=== PATIENT | male | born 1960 | race Caucasian/White ===

== ENCOUNTER 2018-12-05 12:14 | Day surgery (SDC) | payer OTHER ==
[~2018-12-05] VITALS: Ht 175.3 cm; Wt 75.0 kg
[2018-12-05 12:33] VITALS: BP 127/91
[2018-12-05] MEDS ORDERED: VITA1CAP PO (12:46)
[2018-12-05] MEDS ORDERED: METO25TA91 PO (12:46)
[2018-12-05] MEDS ORDERED: RIVA20TA PO (12:46)
[2018-12-05] MEDS ORDERED: PROPOFOL 10 MG/ML, 20ML ONE (13:56)
== END 2018-12-05 15:18 | disposition home or self-care (01) ==
LOC: CACL 12:14
PROVIDERS: ATTEND Internal Medicine Cardiovascular Disease
DX: I48.91 Unspecified atrial fibrillation (principal); I10 Essential (primary) hypertension; E11.9 Type 2 diabetes mellitus without complications; Z79.01 Long term (current) use of anticoagulants; Z79.899 Other long term (current) drug therapy; Z88.8 Allergy status to other drugs, medicaments and biological substances
CPT/HCPCS: 92960

== ENCOUNTER 2019-01-29 08:33 | Outpatient (CLI) | payer OTHER ==
[~2019-01-29 08:33] MED LIST changes: -CHOL3000 PO; -OMNIPAQUE 350 MG/ML, 150 ML BOTTLE ONE
[2019-01-29] MEDS ORDERED: CHOL3000 PO (09:19)
[2019-01-29 09:26] LABS: BASOPHILS # (AUTO) 0.06 x10^3/uL (0-0.1); BASOPHILS % (AUTO) 1 % (0-1); EOSINOPHILS # (AUTO) 0.08 x10^3/uL (0-0.4); EOSINOPHILS % (AUTO) 1 % (1-7); LYMPHOCYTES # (AUTO) 1.47 x10^3/uL (1-3.4); LYMPHOCYTES % (AUTO) 17 % (22-44); MD NO; MEAN CORPUSCULAR HEMOGLOBIN 33.8 pg (27.5-34.5); MEAN CORPUSCULAR VOLUME 102.5 fL (81-97); MEAN PLATELET VOLUME 8.3 fL (7.4-10.4); MONOCYTES % (AUTO) 8 % (2-9); NEUTROPHILS # (AUTO) 6.11 x10^3/uL (1.8-6.8); NEUTROPHILS % (AUTO) 73 % (42-75); PLATELET COUNT 210 x10^3/uL (130-400); RED BLOOD COUNT 4.86 x10^6/uL (4.38-5.82); RED CELL DISTRIBUTION WIDTH 14.4 % (9.4-14.8)
[2019-01-29 09:36] LABS: ANION GAP 5 mmol/L (5-15); CALCIUM 9.4 mg/dL (8.5-10.1); CHLORIDE 108 mmol/L (98-107); CREATININE 0.96 mg/dL (0.7-1.3)
== END 2019-01-29 23:59 | disposition home or self-care (01) ==
LOC: STAR 08:33
PROVIDERS: ATTEND Internal Medicine Cardiovascular Disease
DX: Z01.818 Encounter for other preprocedural examination (principal); I48.91 Unspecified atrial fibrillation
CPT/HCPCS: 36415; 80048; 85025

== ENCOUNTER → 2019-01-29 | Outpatient (CLI) | payer OTHER ==
[~2019-01-29] MED LIST: CHOL3000 PO; METO25TA91 PO; OMNIPAQUE 350 MG/ML, 150 ML BOTTLE ONE; RIVA20TA PO; VITA1CAP PO
== END | disposition home or self-care (01) ==
LOC: CFH 11:32
PROVIDERS: ATTEND Internal Medicine Cardiovascular Disease
DX: I48.91 Unspecified atrial fibrillation (principal); I49.9 Cardiac arrhythmia, unspecified; Z82.41 Family history of sudden cardiac death
CPT/HCPCS: 71046; 75572; Q9967

== ENCOUNTER 2019-02-06 06:39 | Observation (INO) | payer OTHER ==
[2019-01-29 09:08] VITALS: BP 140/103
[~2019-02-06] VITALS: Ht 175.3 cm; Wt 84.9 kg
[~2019-02-06 06:39] MED LIST changes: +CHOL3000 PO
[2019-02-06] MEDS ORDERED: SODIUM CHLORIDE 0.9% 1,000 ML IV SCH (06:56)
[2019-02-06] MEDS ORDERED: SODIUM CHLORIDE 0.9% 1,000 ML IV ONE (07:00)
[2019-02-06] MEDS ORDERED: LIDOCAINE 1%, 20ML ONE (07:12)
[2019-02-06] MEDS ORDERED: PROPOFOL 50 ML ONE (07:56)
[2019-02-06] MEDS ORDERED: FENTANYL PF 250 MCG/5ML ONE (07:56)
[2019-02-06] MEDS ORDERED: MIDAZOLAM 1 MG/ML, 2ML ONE (07:56)
[2019-02-06] MEDS ORDERED: ONDANSETRON 2MG/ML, 2ML ONE (08:09)
[2019-02-06] MEDS ORDERED: SUCCINYLCHOLINE 20 MG/ML, 10ML ONE (08:09)
[2019-02-06] MEDS ORDERED: DEXAMETHASONE 4 MG/ML, 1ML ONE (08:09)
[2019-02-06] MEDS ORDERED: ROCURONIUM 10 MG/ML,10ML ONE (08:09)
[2019-02-06] MEDS ORDERED: DIAZEPAM 5 MG/ML, 2ML IVPush PRN (10:30)
[2019-02-06] MEDS ORDERED: ACETAMINOPHEN 325 MG TABLET PO PRN (10:30)
[2019-02-06] MEDS ORDERED: ONDANSETRON 2MG/ML, 2ML IV PRN (10:30)
[2019-02-06] MEDS ORDERED: MIDAZOLAM 1 MG/ML, 2ML IV PRN (10:30)
[2019-02-06] MEDS ORDERED: hydrALAzine 20 MG/ML, 1ML IV PRN (10:30)
[2019-02-06] MEDS ORDERED: PROMETHAZINE 25 MG/ML, 1ML IV PRN (10:30)
[2019-02-06] MEDS ORDERED: ONDANSETRON ODT 8 MG PO PRN (10:30)
[2019-02-06] MEDS ORDERED: METOPROLOL 1 MG/ML, 5ML IV PRN (10:30)
[2019-02-06] MEDS ORDERED: EPHEDRINE 50 MG/ML, 1ML IVPush PRN (10:30)
[2019-02-06] MEDS ORDERED: OXYcodone 5 MG/5 ML ORAL.SOL UDC PO PRN (10:30)
[2019-02-06] MEDS ORDERED: EPHEDRINE 50 MG/ML, 1ML IM PRN (10:30)
[2019-02-06] MEDS ORDERED: DIPHENHYDRAMINE 50 MG/ML, 1ML IVPush PRN (10:30)
[2019-02-06] MEDS ORDERED: MEPERIDINE/PF 25MG/ML,1ML IVPush PRN (10:30)
[2019-02-06] MEDS ORDERED: FENTANYL PF 100 MCG/2ML IV PRN (10:30)
[2019-02-06] MEDS ORDERED: MORPHINE SULFATE 4 MG/ML, 1ML IVPush PRN (10:30)
[2019-02-06 13:38] VITALS: BP 99/66
[2019-02-06] MEDS: SOTALOL 80MG TABLET PO SCH (18:41)
[2019-02-06 19:23] VITALS: BP 106/71
[2019-02-06] MEDS ORDERED: RIVAROXABAN 20 MG TABLET PO SCH (21:00)
[2019-02-06 21:11] VITALS: BP 70/61
[2019-02-06 21:12] VITALS: BP 92/61
[2019-02-06 21:16] VITALS: BP 96/61
[2019-02-07] VITALS (8 sets, daily range): BP systolic 92–120; BP diastolic 60–78
[2019-02-07] MEDS ORDERED: RIVAROXABAN 20 MG TABLET PO SCH (07:00)
[2019-02-07] MEDS: CHOLECALCIFEROL 1,000 UNIT TABLET PO SCH (07:56)
[2019-02-07] MEDS: SOTALOL 80MG TABLET PO SCH ×2 (07:56→17:20)
[2019-02-07] MEDS: KETOROLAC 30 MG/1 ML IVPush PRN ×4 (08:16→21:42)
[2019-02-07] MEDS ORDERED: SODIUM CHLORIDE 0.9%, 500ML IVBOLUS ONE (08:30)
[2019-02-07] MEDS: SODIUM CHLORIDE 0.9% 1,000 ML IV SCH ×2 (11:00→21:05)
[2019-02-07] MEDS: ACETAMINOPHEN 325 MG TABLET PO PRN ×2 (12:53→18:39)
[2019-02-07] MEDS: RIVAROXABAN 20 MG TABLET PO SCH (17:20)
[2019-02-08 00:37] VITALS: BP 121/83
[2019-02-08] MEDS: KETOROLAC 30 MG/1 ML IVPush PRN (04:04)
[2019-02-08] MEDS: SODIUM CHLORIDE 0.9% 1,000 ML IV SCH (04:04)
[2019-02-08 05:52] VITALS: BP 137/93
[2019-02-08] MEDS: SOTALOL 80MG TABLET PO SCH ×2 (05:55→17:59)
[2019-02-08 06:52] VITALS: BP 135/86
[2019-02-08] MEDS ORDERED: COLC0.6C3 PO ×2 (08:33)
[2019-02-08] MEDS ORDERED: ACET325T26 PO (08:33)
[2019-02-08] MEDS ORDERED: SOTA80TA18 PO (08:33)
[2019-02-08] MEDS: COLCHICINE 0.6 MG CAPSULE PO SCH ×2 (09:23→20:43)
[2019-02-08] MEDS: CHOLECALCIFEROL 1,000 UNIT TABLET PO SCH (09:23)
[2019-02-08 12:45] VITALS: BP 142/98
[2019-02-08] MEDS: SIMETHICONE 80 MG CHEW TAB PO PRN ×3 (13:40→20:51)
[2019-02-08] MEDS: RIVAROXABAN 20 MG TABLET PO SCH (16:44)
[2019-02-08] MEDS: ACETAMINOPHEN 325 MG TABLET PO PRN (17:59)
[2019-02-08 18:02] VITALS: BP 146/101
[2019-02-08 19:43] VITALS: BP 122/82
[2019-02-09 02:53] VITALS: BP 132/88
[2019-02-09] MEDS: SOTALOL 80MG TABLET PO SCH (05:43)
[2019-02-09 07:01] VITALS: BP 136/89
[2019-02-09] MEDS: COLCHICINE 0.6 MG CAPSULE PO SCH (08:44)
[2019-02-09] MEDS: CHOLECALCIFEROL 1,000 UNIT TABLET PO SCH (08:44)
[2019-02-09 08:53] LABS: ALANINE AMINOTRANSFERASE 322 U/L (12-78); ANION GAP 6 mmol/L (5-15); BASOPHILS # (AUTO) 0.02 x10^3/uL (0-0.1); BASOPHILS % (AUTO) 0 % (0-1); CALCIUM 8.4 mg/dL (8.5-10.1); CHLORIDE 106 mmol/L (98-107); CREATININE 0.99 mg/dL (0.7-1.3); EOSINOPHILS # (AUTO) 0.02 x10^3/uL (0-0.4); EOSINOPHILS % (AUTO) 0 % (1-7); LYMPHOCYTES # (AUTO) 0.62 x10^3/uL (1-3.4); LYMPHOCYTES % (AUTO) 6 % (22-44); MD NO; MEAN CORPUSCULAR HGB CONC 34.3 g/dL (33.2-36.2); MEAN CORPUSCULAR VOLUME 99.3 fL (81-97); MEAN PLATELET VOLUME 9.1 fL (7.4-10.4); MONOCYTES # (AUTO) 0.95 x10^3/uL (0.2-0.8); MONOCYTES % (AUTO) 9 % (2-9); NEUTROPHILS # (AUTO) 9.17 x10^3/uL (1.8-6.8); NEUTROPHILS % (AUTO) 85 % (42-75); PLATELET COUNT 152 x10^3/uL (130-400); RED BLOOD COUNT 3.73 x10^6/uL (4.38-5.82); RED CELL DISTRIBUTION WIDTH 13.6 % (9.4-14.8)
[2019-02-09 08:55] LABS: ALKALINE PHOSPHATASE 129 U/L (45-117); BILIRUBIN,TOTAL 1.7 mg/dL (0.2-1.0); TOTAL PROTEIN 6.6 g/dL (6.4-8.2)
[2019-02-09 12:10] VITALS: BP 137/88
[2019-02-09] MEDS: SIMETHICONE 80 MG CHEW TAB PO PRN (13:02)
== END 2019-02-09 14:07 | disposition home or self-care (01) ==
LOC: CACL 06:39 → ORIP 12:11 → 5SO 13:39 → DCLOUNGE 02-09 13:49
PROVIDERS: ADMIT Internal Medicine Cardiovascular Disease; ATTEND Internal Medicine Cardiovascular Disease
DX: I48.91 Unspecified atrial fibrillation (principal); I10 Essential (primary) hypertension; D68.69 Other thrombophilia; Z79.899 Other long term (current) drug therapy; Z79.01 Long term (current) use of anticoagulants
CPT/HCPCS: 36415; 76705; 80053; 85025; 85347; 93005; 93308; 93312; 93321; 93325; 93613; 93656; 93657; 93662; 96374; 96376; C1730; C1732; C1759; C1766; C1893; C1894; G0378; J0330; J1100; J1885; J2250; J2405; J2704; J3010; J3490; J7030; J7040

== ENCOUNTER 2019-02-13 10:46 | Emergency (ER) | payer OTHER ==
[~2019-02-13] VITALS: Ht 175.3 cm; Wt 81.7 kg
[~2019-02-13 10:46] MED LIST changes: +ACET325T26 PO; +COLC0.6C3 PO; +SOTA80TA18 PO
[2019-02-13] MEDS ORDERED: SODIUM CHLORIDE FLUSH 10ML SYR IVF ONE (11:30)
[2019-02-13 11:58] LABS: BASOPHILS # (AUTO) 0.04 x10^3/uL (0-0.1); BASOPHILS % (AUTO) 1 % (0-1); EOSINOPHILS # (AUTO) 0.08 x10^3/uL (0-0.4); EOSINOPHILS % (AUTO) 1 % (1-7); LYMPHOCYTES # (AUTO) 1.17 x10^3/uL (1-3.4); LYMPHOCYTES % (AUTO) 13 % (22-44); MD NO; MEAN CORPUSCULAR HGB CONC 34.3 g/dL (33.2-36.2); MEAN PLATELET VOLUME 8.1 fL (7.4-10.4); MONOCYTES # (AUTO) 0.78 x10^3/uL (0.2-0.8); MONOCYTES % (AUTO) 8 % (2-9); NEUTROPHILS # (AUTO) 7.29 x10^3/uL (1.8-6.8); NEUTROPHILS % (AUTO) 78 % (42-75); PLATELET COUNT 270 x10^3/uL (130-400); RED BLOOD COUNT 3.76 x10^6/uL (4.38-5.82); RED CELL DISTRIBUTION WIDTH 13.8 % (9.4-14.8)
[2019-02-13 12:02] LABS: ALANINE AMINOTRANSFERASE 171 U/L (12-78); ALBUMIN 3.1 g/dL (3.4-5.0); ANION GAP 9 mmol/L (5-15); CALCIUM 8.6 mg/dL (8.5-10.1); CHLORIDE 105 mmol/L (98-107); CREATININE 0.93 mg/dL (0.7-1.3)
[2019-02-13 12:07] LABS: ALKALINE PHOSPHATASE 264 U/L (45-117); BILIRUBIN,TOTAL 1.7 mg/dL (0.2-1.0); TOTAL PROTEIN 6.7 g/dL (6.4-8.2)
[2019-02-13 12:25] LABS: TROPONIN I 0.137 ng/mL (0.000-0.045)
--- NOTE | 2019-02-13 12:28 | NUR ---
NOTIFIED OF CRITICAL TROPONIN 0.137
--- NOTE | 2019-02-13 13:09 | NUR ---
PT TO CT
--- NOTE | 2019-02-13 14:10 | NUR ---
PT RESTING IN [facility], AWAITNG RECHECK BY .
[2019-02-13] MEDS ORDERED: OMNIPAQUE 350 MG/ML, 100ML BOTTLE ONE (14:11)
[2019-02-13] MEDS ORDERED: FUROSEMIDE 20 MG/2 ML IV ONE (14:30)
[2019-02-13] MEDS ORDERED: FUROSEMIDE 20 MG/2 ML ONE (14:38)
--- NOTE | 2019-02-13 15:15 | NUR ---
PT TO BE GIVEN LASIX DOSE THEN DC.
[2019-02-13 15:26] VITALS: BP 157/97
--- NOTE | 2019-02-13 15:45 | NUR ---
PT VOIDED SEVERAL TIMES POST LASIX DOSE, NO DROP IN BP OR C/O DIZZINESS. PT GIVEN URINAL AND DISCHARGED WITH
== END 2019-02-13 15:47 | disposition home or self-care (01) ==
LOC: ED 11:50
DX: I50.31 Acute diastolic (congestive) heart failure (principal); I50.1 Left ventricular failure, unspecified; I50.810 Right heart failure, unspecified; R06.00 Dyspnea, unspecified; R94.5 Abnormal results of liver function studies; R79.9 Abnormal finding of blood chemistry, unspecified
CPT/HCPCS: 36415; 71275; 74177; 80053; 83735; 83880; 84484; 85025; 93005; 96374; 99284; J1940; Q9967

== ENCOUNTER 2019-02-20 06:04 | Day surgery (SDC) | payer OTHER ==
[~2019-02-20] VITALS: Ht 175.3 cm; Wt 75.0 kg
[2019-02-20] MEDS ORDERED: FURO20TA3 PO (06:36)
[2019-02-20] MEDS ORDERED: SOTA120T26 PO (06:36)
[2019-02-20 06:37] VITALS: BP 129/97
[2019-02-20 07:12] LABS: ANION GAP 7 mmol/L (5-15); CALCIUM 8.7 mg/dL (8.5-10.1); CHLORIDE 110 mmol/L (98-107); CREATININE 1.11 mg/dL (0.7-1.3)
[2019-02-20] MEDS ORDERED: PROPOFOL 10 MG/ML, 20ML ONE (07:14)
== END 2019-02-20 09:03 | disposition home or self-care (01) ==
LOC: CACL 06:04
PROVIDERS: ATTEND Internal Medicine Cardiovascular Disease
DX: I48.4 Atypical atrial flutter (principal); I48.91 Unspecified atrial fibrillation; I10 Essential (primary) hypertension; Z79.01 Long term (current) use of anticoagulants; Z79.899 Other long term (current) drug therapy; Z91.013 Allergy to seafood
CPT/HCPCS: 36415; 80048; 92960; 93005; J2704

== ENCOUNTER 2019-06-09 13:44 | Emergency (ER) | payer OTHER ==
[~2019-06-09] VITALS: Ht 175.3 cm; Wt 77.9 kg
[~2019-06-09 13:44] MED LIST changes: +FURO20TA3 PO; +SOTA120T26 PO
--- NOTE | 2019-06-09 13:47 | NUR ---
SUPPLIES PACKER: NO ANSWERX1 TO TRIAGE AT THIS TIME, PER LOBBY STAFF, "PT WENT TO RESTROOM."
[2019-06-09] MEDS ORDERED: METOPROLOL 1 MG/ML, 5ML ONE ×3 (14:10→15:03)
[2019-06-09] MEDS: METOPROLOL 1 MG/ML, 5ML IVPush PRN ×3 (14:18→15:08)
[2019-06-09] MEDS ORDERED: SODIUM CHLORIDE FLUSH 10ML SYR IVF ONE (14:30)
[2019-06-09] MEDS ORDERED: SODIUM CHLORIDE 0.9% 1,000ML IVBOLUS ONE (14:30)
[2019-06-09 14:32] LABS: BASOPHILS # (AUTO) 0.05 x10^3/uL (0-0.1); BASOPHILS % (AUTO) 1 % (0-1); EOSINOPHILS # (AUTO) 0.14 x10^3/uL (0-0.4); EOSINOPHILS % (AUTO) 2 % (1-7); LYMPHOCYTES # (AUTO) 1.55 x10^3/uL (1-3.4); LYMPHOCYTES % (AUTO) 18 % (22-44); MD NO; MEAN CORPUSCULAR HEMOGLOBIN 33.3 pg (27.5-34.5); MEAN CORPUSCULAR HGB CONC 33.6 g/dL (33.2-36.2); MEAN CORPUSCULAR VOLUME 98.9 fL (81-97); MEAN PLATELET VOLUME 8.6 fL (7.4-10.4); MONOCYTES # (AUTO) 0.66 x10^3/uL (0.2-0.8); MONOCYTES % (AUTO) 8 % (2-9); NEUTROPHILS % (AUTO) 72 % (42-75); PLATELET COUNT 203 x10^3/uL (130-400); RED BLOOD COUNT 5.07 x10^6/uL (4.38-5.82); RED CELL DISTRIBUTION WIDTH 14.1 % (9.4-14.8)
[2019-06-09 14:38] LABS: ALANINE AMINOTRANSFERASE 32 U/L (12-78); ALBUMIN 3.9 g/dL (3.4-5.0); ANION GAP 8 mmol/L (5-15); CALCIUM 9.1 mg/dL (8.5-10.1); CHLORIDE 109 mmol/L (98-107); CREATININE 1.07 mg/dL (0.7-1.3)
[2019-06-09 14:42] LABS: ALKALINE PHOSPHATASE 53 U/L (45-117); BILIRUBIN,TOTAL 0.8 mg/dL (0.2-1.0); TOTAL PROTEIN 7.5 g/dL (6.4-8.2); TROPONIN I < 0.015 ng/mL (0.000-0.045)
--- NOTE | 2019-06-09 16:08 | NUR ---
dr oviedo spoke with dr apoorva gutierrez
[2019-06-09] MEDS ORDERED: PROPOFOL 10 MG/ML, 20ML ONE (16:59)
--- NOTE | 2019-06-09 17:19 | NUR ---
ASSUMED PT CARE. PT AWARE OF PLAN FOR CARDIOVERSION. DISCUSSED PROCEDURE AND QUESTIONS ANSWERED. PT WITH HX OF SAME WELL AN ABLATION IN JAN 2019. PT IN NAD AND VSS NOTED. PIV IN PLACE AND FLUSHES W/O DIFFICULTY. CARDIAC PADS PLACED, NC 2 WITH SP02 AND ETCO2 MONITORING IN PLACE. ALL SAFETY MEASURES IN PLACE. CONSENT SIGNED. LAST MEAL WAS A 1/2 OF A BAGEL AND A BURRITO AT [address] WATT AWARE.
[2019-06-09] MEDS ORDERED: PROPOFOL 10 MG/ML, 20ML IVPush ONE (17:30)
--- NOTE | 2019-06-09 18:16 | NUR ---
LATE ENTRY 1730 - 1745 PT MED NOTED AND CARDIOVERSION COMPLETED W/O DIFFICULTY. PT FULLY AWAKE AT 1745, REPORTS NO MEMORY OF EVENT AND DENIES PAIN. BROUGHT TO BEDSIDE, PT VSS, NAD NOTED.
[2019-06-09 18:23] VITALS: BP 120/81
--- NOTE | 2019-06-09 18:37 | NUR ---
PT VERBALIZES NO MEMORY OF EVENT AND DENIES ANY PAIN. Patient/Caregiver given discharge instructions and they have confirmed that they understand the instructions. Patient ambulatory with steady gait.
== END 2019-06-09 18:38 | disposition home or self-care (01) ==
LOC: ED 14:42
DX: I48.0 Paroxysmal atrial fibrillation (principal); I44.30 Unspecified atrioventricular block; R94.31 Abnormal electrocardiogram [ECG] [EKG]; I11.0 Hypertensive heart disease with heart failure; I50.9 Heart failure, unspecified
CPT/HCPCS: 36415; 71045; 80053; 83735; 84484; 85025; 92960; 93005; 99285; J2704; J7030